=== PATIENT | male | born 1955 | race Caucasian/White ===

== ENCOUNTER 2016-12-16 12:05 | Emergency (ER) | payer MEDICARE, OTHER ==
[~2016-12-16] VITALS: Ht 177.8 cm; Wt 86.2 kg
--- NOTE | ~2016-12-16 | CT71 ---
[facility] A Service [facility] RADIOLOGY TEXT RESULTS PATIENT: YAQUELIN BOOTHE LOCATION: [facility] : 55 UNIT #: [id number] AGE: [address]: Mary Hung MD SEX: M ORDER DR: [id number] [facility] [address] [place], [place] [address] [id number] MR#: [id number] Acc #: [id number] NAME: YAQUELIN BOOTHE : 1955 SEX: M STUDY DATE/TIME: 12/16/2016 15:51 UNIT: [facility] ROOM: STUDY DESCRIPTION: CT Head Wo Contrast Attending Physician: Mary Hung M.D. Ordering Physician: Dannie Ang M.D. MEDICAL IMAGING REPORT This report is preliminary unless electronic signature is present EXAM CT scan of head without contrast HISTORY Hallucinations. Confusion. Symptoms began today. TECHNIQUE Unenhanced images obtained through the brain. This CT exam was performed with one or more of the following radiation dose reduction techniques: automatic exposure control, adjustment of mA and/or kV according to patient size, and iterative reconstruction. FINDINGS Ventricles and subarachnoid spaces are normal. 5 mm low-density area in left basal ganglia appears to be a lacunar infarct, which appears old. No hemorrhage. Left ethmoid sinus mucosal thickening. IMPRESSION 1. 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 2. Ethmoid sinus mucosal thickening. 3. Otherwise, normal. Dictated by... Marlon Galvez M.D. THIS IS AN ELECTRONICALLY VERIFIED REPORT Marlon Galvez M.D. at 12/17/2016 7:37 AM FEL/pcl [facility] A Service [facility] RADIOLOGY TEXT RESULTS PATIENT: YAQUELIN BOOTHE LOCATION: [facility] : 55 UNIT #: [id number] AGE: [address]: Mary Hung MD SEX: M ORDER DR: TD: 12/16/2016 23:26 JOB #: [id number] MEDICAL IMAGING REPORT Page 1 of 1 COPY
[2016-12-16 13:11] LABS: URINE SOURCE CLEAN CATCH
[2016-12-16 13:33] LABS: URINE APPEARANCE CLEAR; URINE BILIRUBIN NEG (NEG); URINE BLOOD NEG (NEG); URINE COLOR YELLOW; URINE GLUCOSE NEG (NEG); URINE KETONE NEG (NEG); URINE LEUKOCYTE ESTERASE NEG (NEG); URINE NITRATE NEG (NEG); URINE PH 6.5 (5-8); URINE PROTEIN NEG (NEG); URINE SPECIFIC GRAVITY 1.013 (1.003-1.035); URINE UROBILINOGEN 0.2 MG/DL (NEG)
[2016-12-16 13:37] LABS: CULTURE INDICATED? NO
[2016-12-16 13:45] LABS: AMPHETAMINE NEG (NEG); BARBITURATES NEG (NEG); BENZODIAZEPINES NEG (NEG); COCAINE NEG (NEG); MARIJUANA NEG (NEG); OPIATES NEG (NEG); TRICYCLIC ANTIDEPRESSANTS NEG (NEG); U METHADONE NEG (NEG)
[2016-12-16 13:47] LABS: BASOPHIL% 0.6 % (0-2.5); EOSINOPHIL# 0.4 X10e3 (0-0.7); HEMATOCRIT 45.2 % (38.0-50.0); HEMOGLOBIN 14.3 gm/dL (13.0-16.0); LYMPHOCYTE# 2.8 X10e3 (1.0-3.5); LYMPHOCYTE% 32.8 % (17.0-45.0); MEAN CELL VOLUME 88.5 FL (83-96); MEAN CORPUSCULAR HEMOGLOBIN 27.9 PG (28-34); MEAN CORPUSCULAR HGB CONC 31.5 g/dL (30-36); MEAN PLATELET VOLUME 9.3 FL (6.5-11.5); MONOCYTE# 0.4 X10e3 (0-1.0); MONOCYTE% 4.5 % (3.0-12.0); NEUTROPHIL# 4.9 X10e3 (1.5-7.1); NEUTROPHIL% 57.1 % (40-75); PLATELET COUNT 126 X10e3 (140-420); RED BLOOD COUNT 5.11 X10e (3.90-5.60); WHITE BLOOD COUNT 8.7 X10e3 (4.0-10.5)
[2016-12-16 13:53] LABS: DIFF IND NO
[2016-12-16 14:09] LABS: ALBUMIN SERUM 3.8 g/dL (3.5-5.0); BILIRUBIN,TOTAL 0.7 mg/dL (0.2-2.0); CALCIUM SERUM 8.8 mg/dL (8.4-10.2); CREATININE SERUM 0.8 mg/dL (0.6-1.4); GLOM FILT RATE Estimated 97.1 mL/min (>60); POTASSIUM 4.5 mmol/L (3.5-5.1); PROTEIN TOTAL SERUM 6.7 g/dL (6.0-8.3)
== END 2016-12-16 16:44 | disposition home or self-care (01) ==
LOC: CED 12:05
PROVIDERS: Emergency Medicine
DX: R45.1 Restlessness and agitation (principal); I10 Essential (primary) hypertension; E11.9 Type 2 diabetes mellitus without complications; F17.200 Nicotine dependence, unspecified, uncomplicated; Z88.8 Allergy status to other drugs, medicaments and biological substances
CPT/HCPCS: 36415; 70450; 80053; 80307; 81003; 82140; 82947; 85025; 96361; 96372; 96374; 99285; J2060; J3486